=== PATIENT | male | born 1995 | race African-American/Black ===

== ENCOUNTER 2025-02-20 19:43 | Emergency (ER) | payer MEDICAID ==
[~2025-02-20] VITALS: Ht 180.3 cm; Wt 72.7 kg
[2025-02-20 20:09] VITALS: BP 150/98; PULSE 94; RESP 18; TEMP 98.4; O2SAT 96
== END 2025-02-21 03:42 | disposition home or self-care (01) ==
LOC: EMS 19:43
DX: S93.402A Sprain of unspecified ligament of left ankle, initial encounter (principal); M54.50 Low back pain, unspecified; I10 Essential (primary) hypertension; F12.90 Cannabis use, unspecified, uncomplicated; F17.210 Nicotine dependence, cigarettes, uncomplicated; Z98.890 Other specified postprocedural states; V89.2XXA Person injured in unspecified motor-vehicle accident, traffic, initial encounter; Y93.89 Activity, other specified; Y92.410 Unspecified street and highway as the place of occurrence of the external cause; Y99.8 Other external cause status
CPT/HCPCS: 72040; 72100; 99284; 73610-TC; Z7502